=== PATIENT | male | born 1980 | race Caucasian/White ===

== ENCOUNTER 2025-09-16 18:41 | Emergency (ER) | payer MEDICAID, OTHER ==
[2025-09-16 19:08] VITALS: BP 145/94; PULSE 96
== END 2025-09-16 18:49 ==
LOC: SUPCPDRO 18:41 → VM.ED 18:41
DX: Z02.89 Encounter for other administrative examinations (principal); I10 Essential (primary) hypertension; Z88.5 Allergy status to narcotic agent; Z79.899 Other long term (current) drug therapy
CPT/HCPCS: 99283